=== PATIENT | male | born 1975 | race Caucasian/White ===

== ENCOUNTER 2024-01-19 20:18 | Inpatient (IN) | payer OTHER ==
[2024-01-19 11:54] VITALS: BMI 23.6
[2024-01-19] MEDS: IBUPROFEN 400 MG TABLET (FP) PO ONE (13:09)
[~2024-01-19 20:18] MED LIST: ACETAMINOPHEN 325 MG TABLET (FP) PO PRN; BENZOCAINE/MENTHOL (CHLORASEPTIC ) LOZENGE MM PRN; BENZONATATE 200 MG CAPSULE PO PRN; BISMUTH SUBSALICYLATE 524 MG/30 ML PO PRN; DICYCLOMINE HCL 10 MG CAPSULE PO PRN; IBUPROFEN 400 MG TABLET (FP) PO ONE; IBUPROFEN 400 MG TABLET (FP) PO PRN; IBUPROFEN 600 MG TABLET (FP) PO PRN; LOPERAMIDE HCL 2 MG CAPSULE PO PRN; MAG HYDROX/AL HYDROX/SIMETH 30 ML UNIT-DOSE CUP PO PRN; MAGNESIUM HYDROX 2400MG/30ML ORAL SUSPENSION 30 ML CUP PO PRN; NALOXONE HCL (KLOXXADO) 8 MG SPRAY NS PRN; NALOXONE HCL 0.4 MG/ML VIAL IM PRN; NICOTINE POLACRILEX 2 MG GUM BUC PRN; POLYETHYLENE GLYCOL (HEALTHYLAX) 3350 17 GM PACKET PO PRN; guaiFENesin 600 MG TABLET.ER (FP) PO PRN
[2024-01-19] MEDS ORDERED: methaDONE HCL 10 MG TABLET (FOR DETOX USE ONLY) ONE (21:38)
[2024-01-19] MEDS ORDERED: cloNIDine HCL 0.1 MG TABLET ONE (21:38)
[2024-01-19] MEDS: cloNIDine HCL 0.1 MG TABLET PO PRN (21:42)
[2024-01-19] MEDS: methaDONE HCL 10 MG TABLET (FOR DETOX USE ONLY) PO ONE (21:44)
[2024-01-19] MEDS: CLINDAMYCIN HCL 150 MG CAPSULE (FP) PO SCH (23:26)
[2024-01-19] MEDS: ONDANSETRON *ODT* 4 MG TABLET SL PRN (23:30)
[2024-01-19] MEDS: MELATONIN 5 MG TABLETS PO SCH (23:33)
[2024-01-19] MEDS: THIAMINE HCL 100 MG TABLET (FP) PO SCH (23:34)
[2024-01-20] MEDS: hydrOXYzine PAMOATE 25 MG CAPSULE (FP) PO PRN (09:21)
[2024-01-20] MEDS: METHOCARBAMOL 500 MG TABLET PO PRN (09:21)
[2024-01-20] MEDS: PRENATAL VITAMINS W/ FOLIC ACID TABLET (FP) PO SCH (09:25)
[2024-01-20] MEDS: NICOTINE 21 MG/24 HOURS TOPICAL PATCH TD SCH (09:26)
[2024-01-20] MEDS: diazePAM 5 MG TABLET PO PRN (11:34)
[2024-01-21 06:35] VITALS: TEMP 97.7
[2024-01-21 09:47] VITALS: BP 131/73; PULSE 75; RESP 18
[2024-01-21] MEDS: methaDONE HCL 10 MG TABLET (FOR DETOX USE ONLY) PO ONE (10:26)
[2024-01-21 12:50] LABS: CHLORIDE 105 mmol/L (98-107); POTASSIUM 4.5 mmol/L (3.5-5.1); SODIUM 140 mmol/L (136-145)
[2024-01-21 12:58] LABS: ALBUMIN 2.8 g/dl (3.4-5.0); ANION GAP 11 mmol/L (4-13); BLOOD UREA NITROGEN 19.1 mg/dL (7-18); CALCIUM 8.7 mg/dL (8.5-10.1); CO2 23 mmol/L (21-32); GLUCOSE,RANDOM 100 mg/dL (74-106)
[2024-01-21 13:01] LABS: CREATININE 0.7 mg/dL (0.55-1.3); SGOT/AST 21 U/L (15-37); SGPT/ALT 18 U/L (13-61)
[2024-01-21 13:03] LABS: BILIRUBIN,TOTAL 0.5 mg/dL (0.2-1)
[2024-01-21 13:04] LABS: ALK PHOS 61 U/L (45-117)
[2024-01-23] MEDS ORDERED: methaDONE HCL 10 MG TABLET (FOR DETOX USE ONLY) PO ONE (10:00)
== END 2024-01-21 11:20 | disposition left against medical advice (07) | DRG 770 ==
LOC: YASAS 20:18 → Y6N 21:32
PROVIDERS: ADMIT Allergy & Immunology; ATTEND Surgery
PROC: HZ2ZZZZ Detoxification Services for Substance Abuse Treatment (ICD-10-PCS; principal; 2024-01-19)
DX: F11.23 Opioid dependence with withdrawal (principal); F17.210 Nicotine dependence, cigarettes, uncomplicated; L03.113 Cellulitis of right upper limb; L03.114 Cellulitis of left upper limb; Z59.00 Homelessness unspecified; Z88.0 Allergy status to penicillin
CPT/HCPCS: 0241U-QW; 36415; 73110-TC-LT-FY; 73110-TC-RT-FY; 73130-TC-LT-FY; 73130-TC-RT-FY; 80053; 80305; 80307; 85025; 85651; 86140; 86780; 87040; 93005; 93010; 99282-25; Q0162